=== PATIENT | male | born 1990 | race Caucasian/White ===

== ENCOUNTER 2016-12-02 11:49 | Emergency (ER) | payer OTHER ==
--- NOTE | ~2016-12-02 | EKG ---
PATIENT: ANTWON JACQUES UNIT #: [id number] Ventricular Rate: 92 BPM Atrial Rate: 92 BPM P-R Interval: 132 ms QRS Duration: 78 ms Q-T Interval: 362 ms QTC Calculation(Bezet): 447 ms P [place]: 1 degrees Calculated R [place]: -6 degrees Calculated T [place]: 38 degrees Diagnosis Line: Normal sinus rhythm Diagnosis Line: Normal ECG Diagnosis Line: When compared with ECG of 24-MAR-2012 21:58, Diagnosis Line: No significant change was found Diagnosis Line: Confirmed by SHINE ARRIAZA MD ([id number]) on 12/05/2016 Diagnosis Line: 9:35:09 AM INTERPRETING MD: ARSALAN RODRIGUEZ
--- NOTE | ~2016-12-02 | CR72 ---
[facility]. [facility] A Service of [facility] & [facility] RADIOLOGY TEXT RESULTS PATIENT: ANTWON JACQUES LOCATION: SED : 86 UNIT #: [id number] AGE: [address]: Octavio Leger MD SEX: M ORDER DR: [id number] [address] [address] [id number] E MR#: [id number] Acc #: [id number] NAME: ANTWON JACQUES : 1990 SEX: M STUDY DATE/TIME: 12/02/2016 11:51 UNIT: SED ROOM: STUDY DESCRIPTION: CR Chest Single View Portable Attending Physician: Octavio Leger M.D. Ordering Physician: Octavio Leger M.D. Primary Care Physician: Tina Go M.D. MEDICAL IMAGING REPORT This report is preliminary unless electronic signature is present. EXAM Single view of the chest dated 12/02/2016 COMPARISON Single view of the chest dated 12/12/2012 HISTORY Congestion, sore throat and shortness of air for 1 week. FINDINGS Single view of the chest was obtained. A single AP portable view of the chest shows both lungs to be clear. The heart is normal in size. The mediastinal contour is normal. No significant bone abnormalities are seen. IMPRESSION Normal portable chest. Dictated by... Familia Nava M.D. THIS IS AN ELECTRONICALLY VERIFIED REPORT Familia Nava M.D. at 12/03/2016 3:21 PM CPR/kieran TD: 12/02/2016 14:12 JOB #: [id number] MEDICAL IMAGING REPORT Page 1 of 1
[~2016-12-02 11:49] MED LIST: AMOXICILLIN500 M1 PO; BACTRIM DS TABL1 TA1 PO; DOXYCYCLINE150 MG PO; FLEXERIL10 M1 PO; FLEXERIL10 MG PO; GUAIFENESIN400 M1 PO; IBUPROFEN800 MG PO; KEFLEX500 M1 PO; KEFLEX500 M2; KEFLEX500 MG PO; LORTAB 10/500 T1 TAB PO; LORTAB 5/500 TA1 TA2 PO; NAPROXEN PO; NO MEDICATIONS; PERCOCET PO; PHENERGAN25 MG PO; VOLTAREN50 MG PO; VOLTAREN75 MG PO; ZITHROMAX PO; ZYRTEC10 M1 PO
== END 2016-12-02 12:52 | disposition home or self-care (01) ==
LOC: SED 11:49
DX: R09.1 Pleurisy (principal); J20.9 Acute bronchitis, unspecified; E66.9 Obesity, unspecified; F17.210 Nicotine dependence, cigarettes, uncomplicated
CPT/HCPCS: 71010; 93005; 94640; 99284